=== PATIENT | female | born 1950 | race Caucasian/White ===

== ENCOUNTER 2016-10-26 20:22 | Emergency (ER) | payer BC ==
[2016-10-26 21:00] VITALS: BP 137/77
--- NOTE | 2016-10-26 22:47 | UC ---
Laceration HPI - HPI Summary HPI Summary: The patient comes in today for: 1. Laceration of the left thumb. Onset: 3 hours ago. Palliative/provocative: Pressure and moving makes it hurt. Rest makes it better. Quality: Burning. Region: Left thumb Severity: 2/10 Time: constant. Associated symptoms: Numbness: Present distal to the laceration. Last tetanus: She thinks that it has been in the last 10 years. * - History Of Current Complaint Chief Complaint: UCLaceration Stated Complaint: FINGER LAC Time Seen by Provider: 10/26/16 22:36 Hx Obtained From: Patient, Family/Parlor Maid - Allergies/Home Medications Allergies/Adverse Reactions: Allergies Allergy/AdvReac Type Severity Reaction Status Date / Time Atovaquone [From Malarone] Allergy RED-PURPLE Verified 11/10/15 16:08 REACTION TO SKIN Proguanil [From Malarone] Allergy RED-PURPLE Verified 11/10/15 16:08 REACTION TO SKIN Home Medications: Home Medications Cholecalciferol [Vitamin D] 1,000 unit PO 10/26/16 [History] PMH/Surg Hx/FS Hx/Imm Hx Previously Healthy: No - Osteopenia. Endocrine History Of: Denies: Diabetes, Thyroid Disease, Hyperthyroidism, Hypothyroidism, Dyslipidemia Cardiovascular History Of: Denies: Cardiac Disorders, Hypertension, Pacemaker/ICD, Myocardial Infarction , Congestive Heart Failure, Atrial Fibrillation, Deep Vein Thrombosis, Bleeding Disorders Respiratory History Of: Denies: COPD, Asthma, Bronchitis, Pneumonia, Pulmonary Embolism GI/ History Of: Denies: Gastroesophageal Reflux, Ulcer, Gastrointestinal Bleed, Gall Bladder Disease, Kidney Stones, Diverticulitis, Renal Disease, Urosepsis Neurological History Of: Denies: TIA, CVA, Dementia, Seizures, Migraine Psychological History Of: Denies: Anxiety, Depression, Bipolar Disorder, Schizophrenia, Post Traumatic Stress Disorder Cancer History Of: Denies: Lung Cancer, Colorectal Cancer, Breast Cancer, Prostate Cancer, Cervical Cancer Other History Of: Negative For: HIV, Hepatitis B, Hepatitis C, Anticoagulant Therapy - Surgical History Surgical History: Yes Surgery Procedure, Year, and Place: Rt FOOT - WART REMOVED - AGE 16 - Family History Known Family History: Positive: Cardiac Disease - mother- CHF, Hypertension - mother, Diabetes - sister - Social History Occupation: Employed Full-time Alcohol Use: Weekly Substance Use Type: None Smoking Status (MU): Never Smoked Tobacco Review of Systems Constitutional: Negative Skin: Negative Eyes: Negative ENT: Negative Respiratory: Negative Cardiovascular: Negative Gastrointestinal: Negative Genitourinary: Negative All Other Systems Reviewed And Are Negative: Yes Physical Exam Triage Information Reviewed: Yes Appearance: Well-Appearing, No Pain Distress, Well-Nourished Vital Signs: Initial Vital Signs Temp 97.4 F 10/26/16 20:55 Pulse 64 10/26/16 20:55 Resp 18 10/26/16 20:55 BP 137/77 10/26/16 20:55 Pulse Ox 99 10/26/16 20:55 Vital Signs Reviewed: Yes Eyes: Positive: Conjunctiva Clear. Negative: Discharge ENT: Positive: Hearing grossly normal. Negative: Pharyngeal erythema, Nasal congestion, Nasal drainage, TM bulging, TM dull, TM red, Tonsillar swelling, Tonsillar exudate Dental: Negative: Gross Decay/Caries @, Dental Fracture @ Neck: Positive: Supple, Nontender, No Lymphadenopathy. Negative: Nuchal Rigidity Respiratory: Positive: Chest non-tender, Lungs clear. Negative: No respiratory distress, No accessory muscle use, Crackles, Wheezing Cardiovascular: Positive: RRR, No Murmur Abdomen Description: Positive: Nontender, No Organomegaly, Soft. Negative: Distended, Guarding Musculoskeletal: Positive: Strength Intact, ROM Intact, No Edema Neurological: Positive: Alert, Muscle Tone Normal Psychological: Positive: Age Appropriate Behavior, Consolable Skin: Positive: Other - Left thumb: There is a cut from the lateral side near the base of the thumb nail around toward the middle part of the pad of the thumb of the distal phalanx. Cut down to the sub-cutaneous fat. She is able to flex and extend the distal phalanx. There is numbness before lidocaine used on the distal side of the wound. No bone seen. Laceration Repair - Laceration Repair 1 Description: Linear Laceration Size After Repair: Length (cm) - 2, Width (mm) - 4, Depth (mm) - 4 Modified For Repair: No Type Injection: Local Anesthesia Used: 2.0% Lido Cleansing Completed Via Routine Prep: Yes Irrigation With Pressure Irrigation Device: Yes Closure Material: Sutures Closure Method: Single Layer Suture Type: Nylon - Ten 4-0 nylon. Laceration Course/Dx - Course/Dx Course Of Treatment: Boostrix and laceration repair. - Differential Dx - Laceration/Wound Differental Diagnoses: Laceration Provider Diagnoses: Laceration of the left thumb. Discharge - Discharge Plan Condition: Stable Disposition: HOME Patient Education Materials: Care For Your Stitches (ED), Laceration (ED) Forms: *Work Release Referrals: Zachary Corral MD [Primary Care Provider] - 2 Weeks (See your primary care provider or us in 12-14 days for suture removal.) Additional Instructions: Inspect the area daily watching for increased redness, tenderness, swelling or drainage. If this occurs, please be seen then. Gently clean the area with a mild soap such as Dove (without any scents or colorings) and apply Polysporin ointment to the wound. Cover with a non-stick dressing ( Telfa) for the rest of the day. When resting, you may expose the wound to light and air, but not direct sunlight. If there is any oozing, apply pressure. Apply cold compresses to the area for the first 1-2 days. Use [id number] pain medications as needed for pain. Cold compresses can help with pain reduction also. YOu may also use Smooth's Baby Shampoo to clear the area. Use cold compresses and [id number] pain medications as needed for pain.
[2016-10-26] MEDS ORDERED: Tetan/Diph/Pertus SYR(Tdap)* 0.5 ML SYR(BOOSTRIX) use SYR IM ONE (23:20)
[2016-10-26] MEDS ORDERED: Lidocaine 2% PF * 5 ML VIAL ONE (23:31)
== END 2016-10-27 00:24 | disposition home or self-care (01) ==
LOC: UCEAST 20:22
DX: S61.012A Laceration without foreign body of left thumb without damage to nail, initial encounter (principal); W26.0XXA Contact with knife, initial encounter
CPT/HCPCS: 12001; 90471; 90715; 99211; G0463

== ENCOUNTER 2016-12-10 15:20 | Emergency (ER) | payer BC ==
[2016-12-10 15:34] VITALS: BP 148/84
[2016-12-10] MEDS ORDERED: Lidocaine 1% MPF* 2 ML VIAL ONE ×2 (15:45→15:46)
--- NOTE | 2016-12-10 16:21 | UC ---
Cyndi Paul Erika, scribed for Roque Sotomayor MD on 12/10/16 at 1549 . Laceration HPI - HPI Summary HPI Summary: Patient is a 66-year-old female presenting to [facility] with a CC of laceration to the left middle finger. 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 Patient reports that pain and bleeding were alleviated by pressure. Patient now states pain is a 3/10 after removing the bandage. Patient reports Hx HTN and denies Hx diabetes. FHx cardiac disease, HTN, diabetes. - History Of Current Complaint Chief Complaint: UCLaceration Stated Complaint: FINGER LAC Time Seen by Provider: 12/10/16 15:31 Hx Obtained From: Patient Laceration Location: Finger Mechanism Of Injury: Sharp Trauma - knife Onset/Duration: Sudden Onset, Lasting Hours, Still Present Severity: Moderate Pain Intensity: 3 Pain Scale Used: 0-10 Numeric - Allergies/Home Medications Allergies/Adverse Reactions: Allergies Allergy/AdvReac Type Severity Reaction Status Date / Time Atovaquone [From Malarone] Allergy RED-PURPLE Verified 11/10/15 16:08 REACTION TO SKIN Proguanil [From Malarone] Allergy RED-PURPLE Verified 11/10/15 16:08 REACTION TO SKIN PMH/Surg Hx/FS Hx/Imm Hx Endocrine History Of: Denies: Diabetes Cardiovascular History Of: Reports: Hypertension Cancer History Of: Denies: Lung Cancer, Colorectal Cancer, Breast Cancer, Prostate Cancer, Cervical Cancer Other History Of: Negative For: HIV, Hepatitis B, Hepatitis C, Anticoagulant Therapy - Surgical History Surgical History: Yes Surgery Procedure, Year, and Place: Rt FOOT - WART REMOVED - AGE 16 - Family History Known Family History: Positive: Cardiac Disease - mother- CHF, Hypertension - mother, Diabetes - sister - Social History Occupation: Retired Alcohol Use: Weekly Alcohol Amount: 3 -4 glasses per week once in awhile Substance Use Type: None Smoking Status (MU): Never Smoked Tobacco - Immunization History Most Recent Influenza Vaccination: 2016/2017 Most Recent Tetanus Shot: 2017 Review of Systems Constitutional: Negative Skin: Other - laceration left middle finger Eyes: Negative ENT: Negative Respiratory: Negative Cardiovascular: Negative Gastrointestinal: Negative Genitourinary: Negative Motor: Negative Neurovascular: Negative Musculoskeletal: Negative Neurological: Negative Psychological: Negative All Other Systems Reviewed And Are Negative: Yes Physical Exam Triage Information Reviewed: Yes Vital Signs: Initial Vital Signs Temp 98.7 F 12/10/16 15:27 Pulse 60 12/10/16 15:27 Resp 18 12/10/16 15:27 BP 148/84 12/10/16 15:27 Pulse Ox 97 12/10/16 15:27 Vital Signs Reviewed: Yes - Additional Comments Vital signs: Reviewed Gen.: Patient is a well-developed and nourished female in no acute distress. Patient is lying comfortably on the stretcher. Head: Normacephalic and atraumatic Eyes: PERRLA, EOMI x2. Ears: Right and Left ear canal and TM WNL Nose and mouth: WNL Neck: Supple, no lymphadenopathy, no JVD Lungs: CTA B/L CVS: S1 & S2 present. No murmurs appreciated. ABDOMEN: Soft, non-tender. No signs of distention. No rebound no guarding, and no masses palpated. Bowel sounds are normal. EXTREMITIES: FROM in all major joints, no edema, no cyanosis or clubbing. Left middle finger with a laceration in a L shape with irregular borders . Nail also with small abrasion. NEURO: Alert and oriented x 3. No acute neurological deficits. Speech is normal and follows commands. SKIN: Dry and warm Laceration Repair - Laceration Repair 1 Laceration Size After Repair: Length (cm) - 0.5 cm L-shaped at the left middle finger Type Injection: Local Anesthesia Used: 1.0% Lido Cleansing Completed Via Routine Prep: Yes Closure Material: Sutures - 3 sutures Closure Method: Single Layer Suture Type: Other - 5.0 Ethilon Laceration Course/Dx - Course/Dx Course Of Treatment: Patient is a 66-year-old female presenting to [facility] with a CC of laceration to the left middle finger. 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 Patient reports that pain and bleeding were alleviated by pressure. Patient now states pain is a 3/10 after removing the bandage. Patient reports Hx HTN and denies Hx diabetes. FHx cardiac disease, HTN, diabetes. Laceration was repaired. No complications. Patient has the Tetanous vacine 1 month ago. D/C home given instructions to look for signs of infections. She understands or agrees. Suture removal in 7-10 days. - Differential Dx - Laceration/Wound Differental Diagnoses: Laceration, Puncture Wound Provider Diagnoses: 1. Left middle finger laceration Discharge - Discharge Plan Condition: Stable Disposition: HOME Patient Education Materials: Finger Laceration (ED), Care For Your Stitches (ED ) Referrals: Zachary Corral MD [Primary Care Provider] - Additional Instructions: Suture removal in 7-10 days. The documentation as recorded by the Cyndi brasher Erika accurately reflects the service I personally performed and the decisions made by Bran galdamez Walter, MD.
== END 2016-12-10 16:38 | disposition home or self-care (01) ==
LOC: UCEAST 15:20
DX: S61.213A Laceration without foreign body of left middle finger without damage to nail, initial encounter (principal); W26.0XXA Contact with knife, initial encounter; Y93.G1 Activity, food preparation and clean up; Y92.9 Unspecified place or not applicable; I10 Essential (primary) hypertension
CPT/HCPCS: 12001; 12002; 99211; G0463

== ENCOUNTER 2016-12-28 08:53 | Emergency (ER) | payer BC ==
[2016-12-28 09:07] VITALS: BP 125/77
--- NOTE | 2016-12-28 09:19 | UC ---
Skin Complaint HPI - History of Current Complaint Hx Obtained From: Patient Hx Last Menstrual Period: post menopausal Onset/Duration: Sudden Onset - found tick on L upper thigh this am. pulled off half of tick. she is not certain how long the tick was on her but lives in the [facility] Onset Severity: Mild Current Severity: None Location: Discrete - upper L ant thigh Character: Redness Aggravating: Nothing Alleviating: Nothing Associated Signs & Symptoms: Positive: Negative Related History: Insect Bite/Sting <Temo Hernandez - Last Filed: 12/28/16 09:13> <Carla Rebollar - Last Filed: 12/28/16 10:20> - History of Current Complaint Chief Complaint: UCSkin Time Seen by Provider: 12/28/16 09:10 Stated Complaint: TICK BITE - Allergy/Home Medications Allergies/Adverse Reactions: Allergies Allergy/AdvReac Type Severity Reaction Status Date / Time Atovaquone [From Malarone] Allergy RED-PURPLE Verified 12/28/16 09:07 REACTION TO SKIN Proguanil [From Malarone] Allergy RED-PURPLE Verified 12/28/16 09:07 REACTION TO SKIN Review of Systems Constitutional: Negative Respiratory: Negative Cardiovascular: Negative Musculoskeletal: Negative Neurological: Negative Psychological: Negative All Other Systems Reviewed And Are Negative: Yes <Temo Hernandez - Last Filed: 12/28/16 09:13> PMH/Surg Hx/FS Hx/Imm Hx Previously Healthy: Yes Endocrine History Of: Denies: Diabetes, Thyroid Disease, Hyperthyroidism, Hypothyroidism, Dyslipidemia Cardiovascular History Of: Reports: Hypertension - no meds Denies: Cardiac Disorders, Pacemaker/ICD, Myocardial Infarction, Congestive Heart Failure, Atrial Fibrillation, Deep Vein Thrombosis, Bleeding Disorders Respiratory History Of: Denies: COPD, Asthma, Bronchitis, Pneumonia, Pulmonary Embolism GI/ History Of: Denies: Gastroesophageal Reflux, Ulcer, Gastrointestinal Bleed, Gall Bladder Disease, Kidney Stones, Diverticulitis, Renal Disease, Urosepsis Neurological History Of: Denies: TIA, CVA, Dementia, Seizures, Migraine Psychological History Of: Denies: Anxiety, Depression, Bipolar Disorder, Schizophrenia, Post Traumatic Stress Disorder Cancer History Of: Denies: Lung Cancer, Colorectal Cancer, Breast Cancer, Prostate Cancer, Cervical Cancer Other History Of: Negative For: HIV, Hepatitis B, Hepatitis C, Anticoagulant Therapy - Surgical History Surgical History: Yes Surgery Procedure, Year, and Place: Rt FOOT - WART REMOVED - AGE 16 - Family History Known Family History: Positive: Cardiac Disease - mother- CHF, Hypertension - mother, Diabetes - sister - Social History Occupation: Retired Lives: With Family Alcohol Use: Weekly Alcohol Amount: 3 -4 glasses per week once in awhile Substance Use Type: None Smoking Status (MU): Never Smoked Tobacco - Immunization History Most Recent Influenza Vaccination: 2015/2016 Most Recent Tetanus Shot: 2017 <Temo Hernandez - Last Filed: 12/28/16 09:13> Physical Exam Triage Information Reviewed: Yes Appearance: Well-Appearing, No Pain Distress, Well-Nourished Vital Signs: Initial Vital Signs Temp 97.4 F 12/28/16 09:02 Pulse 60 12/28/16 09:02 Resp 18 12/28/16 09:02 BP 125/77 12/28/16 09:02 Pulse Ox 100 12/28/16 09:02 Vital Signs Reviewed: Yes Respiratory Exam: Normal Cardiovascular Exam: Normal Musculoskeletal Exam: Normal Musculoskeletal: Positive: Strength Intact Neurological Exam: Normal Psychological Exam: Normal Skin: Positive: Other - small black dot surrounded by erythema (8mm) upper L ant thigh. tiny black spec removed with forceps <Temo Hernandez - Last Filed: 12/28/16 09:13> Vital Signs: Initial Vital Signs Temp 97.4 F 12/28/16 09:02 Pulse 60 12/28/16 09:02 Resp 18 12/28/16 09:02 BP 125/77 12/28/16 09:02 Pulse Ox 100 12/28/16 09:02 <Carla Rebollar - Last Filed: 12/28/16 10:20> Course/Dx - Differential Diagnoses - Skin Complaint Differential Diagnoses: Cellulitis, Foreign Body, Tick Born Illness - Diagnoses Provider Diagnoses: tick bite <Temo Hernandez - Last Filed: 12/28/16 09:13> Discharge <Temo Hernandez - Last Filed: 12/28/16 09:13> <Carla Rebollar - Last Filed: 12/28/16 10:20> - Discharge Plan Condition: Good Disposition: HOME Prescriptions: Doxycycline (Monohydrate) [Doxycycline Monohydrate] 100 mg PO ONCE #2 cap Patient Education Materials: Lyme Disease (ED), Tick Bite (ED) Referrals: Zachary Corral MD [Primary Care Provider] - If Needed (for enlarging rash or other problems) Additional Instructions: keep area clean and dry. watch for signs of Lyme disease Take doxycycline as prescribed today Attestations User Type: Provider - I was available for consult. This patient was seen by the CHUCK. The patient was not presented to, seen by, or examined by me. <Carla Rebollar - Last Filed: 12/28/16 10:20>
== END 2016-12-28 09:55 | disposition home or self-care (01) ==
LOC: UCEAST 08:53
DX: S70.362A Insect bite (nonvenomous), left thigh, initial encounter (principal); W57.XXXA Bitten or stung by nonvenomous insect and other nonvenomous arthropods, initial encounter; N95.9 Unspecified menopausal and perimenopausal disorder
CPT/HCPCS: 99212; G0463

== ENCOUNTER 2017-07-10 14:49 | Emergency (ER) | payer MEDICARE, OTHER ==
[2017-07-10 15:39] VITALS: BP 130/71
--- NOTE | 2017-07-10 15:48 | UC ---
Lower Extremity/Ankle HPI - HPI Summary HPI Summary: 67 year old female presents with complains of right little toe pain post fall. - History of Current Complaint Chief Complaint: UCLowerExtremity Stated Complaint: TOE INJURY Time Seen by Provider: 07/10/17 15:47 Hx Obtained From: Patient Hx Last Menstrual Period: post menopause Onset/Duration: Sudden Onset Severity Initially: Moderate Severity Currently: Moderate Pain Scale Used: 0-10 Numeric - 5 - Allergies/Home Medications Allergies/Adverse Reactions: Allergies Allergy/AdvReac Type Severity Reaction Status Date / Time Atovaquone [From Malarone] Allergy RED-PURPLE Verified 12/28/16 09:07 REACTION TO SKIN Proguanil [From Malarone] Allergy RED-PURPLE Verified 12/28/16 09:07 REACTION TO SKIN PMH/Surg Hx/FS Hx/Imm Hx Previously Healthy: Yes Other History Of: Negative For: HIV, Hepatitis B, Hepatitis C, Anticoagulant Therapy - Surgical History Surgical History: Yes Surgery Procedure, Year, and Place: Rt FOOT - WART REMOVED - AGE 16 - Family History Known Family History: Positive: Cardiac Disease - mother- CHF, Hypertension - mother, Diabetes - sister - Social History Alcohol Use: Weekly Alcohol Amount: 3 -4 glasses per week once in awhile Substance Use Type: None Smoking Status (MU): Never Smoked Tobacco - Immunization History Most Recent Influenza Vaccination: 2015/2017 Most Recent Tetanus Shot: 2017 Review of Systems Constitutional: Negative Skin: Negative Eyes: Negative ENT: Negative Respiratory: Negative Cardiovascular: Negative Gastrointestinal: Negative Genitourinary: Negative Motor: Negative Neurovascular: Negative Musculoskeletal: Other: - right little toe pain Neurological: Negative Psychological: Negative All Other Systems Reviewed And Are Negative: Yes Physical Exam Triage Information Reviewed: Yes Vital Signs: Initial Vital Signs Temp 37.2 C 07/10/17 15:31 Pulse 70 07/10/17 15:31 Resp 16 07/10/17 15:31 BP 130/71 07/10/17 15:31 Pulse Ox 100 07/10/17 15:31 Eye Exam: Normal ENT Exam: Normal Dental Exam: Normal Neck exam: Normal Neck: Positive: 1 Respiratory Exam: Normal Cardiovascular Exam: Normal Abdominal Exam: Normal Musculoskeletal: Positive: Other: - right little toe pain Neurological Exam: Normal Psychological Exam: Normal Skin Exam: Normal Lower Extremity Course/Dx - Differential Dx/Diagnosis Provider Diagnoses: right little toe non displaced fx Discharge - Discharge Plan Condition: Stable Disposition: HOME Prescriptions: Acetaminop/Codeine 30 MG TAB* [Tylenol/Codeine 30 MG TAB*] 1 tab PO Q8H PRN #9 tab MDD 3 PRN Reason: Pain Patient Education Materials: Toe Fracture (ED) Referrals: Parker De Anda MD [Medical Doctor] - Zachary Corral MD [Primary Care Provider] -
--- NOTE | 2017-07-10 16:13 | RAD ---
INDICATION: Fall. Right foot injury COMPARISON: None TECHNIQUE: AP, lateral, and oblique views were obtained. FINDINGS: There is a essentially nondisplaced transverse fractures of the distal aspect of the proximal fossa the fifth toe. There are no other fractures. There is mild associated soft tissue swelling. IMPRESSION: FRACTURE FIFTH TOE DESCRIBED.
== END 2017-07-10 17:01 | disposition home or self-care (01) ==
LOC: UCEAST 14:49
DX: S92.504A Nondisplaced unspecified fracture of right lesser toe(s), initial encounter for closed fracture (principal); W19.XXXA Unspecified fall, initial encounter; Y93.9 Activity, unspecified; Y92.9 Unspecified place or not applicable; Y99.9 Unspecified external cause status
CPT/HCPCS: 99213; G0463

== ENCOUNTER 2019-01-20 08:54 | Emergency (ER) | payer MEDICARE, OTHER ==
[2019-01-20 09:03] VITALS: BP 166/99
--- NOTE | 2019-01-20 10:16 | UC ---
Skin Complaint HPI - HPI Summary HPI Summary: PATIENT DISCOVERED A TICK ATTACHED TO THE LEFT SIDE OF HER ABDOMEN THIS MORNING. ATTEMPTED TO REMOVE IT WITH TWEEZERS BUT WAS UNSUCCESSFUL. THINKS THE TICK ATTACHED YESTERDAY MORNING WHILE [place]. - History of Current Complaint Chief Complaint: UCSkin Time Seen by Provider: 01/20/19 10:00 Stated Complaint: TICK BITE BELLY Hx Obtained From: Patient Hx Last Menstrual Period: post menopause Onset/Duration: Still Present Timing: Constant Onset Severity: Mild Current Severity: Mild Pain Intensity: 2 Pain Scale Used: 0-10 Numeric Character: Redness Aggravating Factor(s): Nothing Alleviating Factor(s): Nothing - Allergy/Home Medications Allergies/Adverse Reactions: Allergies Allergy/AdvReac Type Severity Reaction Status Date / Time atovaquone [From Malarone] Allergy red purple Verified 01/20/19 08:59 reaction proguanil [From Malarone] Allergy red purple Verified 01/20/19 08:59 reaction PMH/Surg Hx/FS Hx/Imm Hx Cardiovascular History: Hypertension Other History Of: Negative For: HIV, Hepatitis B, Hepatitis C, Anticoagulant Therapy - Surgical History Surgical History: Yes Surgery Procedure, Year, and Place: Rt FOOT - WART REMOVED - AGE 16 - Family History Known Family History: Positive: Cardiac Disease - mother- CHF, Hypertension - mother, Diabetes - sister - Social History Alcohol Use: Weekly Alcohol Amount: 3 -4 glasses per week once in awhile Substance Use Type: None Smoking Status (MU): Never Smoked Tobacco - Immunization History Most Recent Influenza Vaccination: 2016/2016 Most Recent Tetanus Shot: 2017 Review of Systems All Other Systems Reviewed And Are Negative: Yes Skin: Positive: Other - TICK ATTACHED TO ABDOMEN Respiratory: Positive: Negative Cardiovascular: Positive: Negative Gastrointestinal: Positive: Negative Physical Exam Triage Information Reviewed: Yes Appearance: Well-Appearing, No Pain Distress, Well-Nourished Vital Signs: Initial Vital Signs Temp 97.1 F 01/20/19 09:01 Pulse 68 01/20/19 09:01 Resp 16 01/20/19 09:01 BP 166/99 01/20/19 09:01 Pulse Ox 100 01/20/19 09:01 Vital Signs Reviewed: Yes Eyes: Positive: Conjunctiva Clear ENT: Positive: Hearing grossly normal Neck: Positive: Supple Respiratory: Positive: No respiratory distress, No accessory muscle use Cardiovascular: Positive: Pulses Normal Abdomen Description: Positive: Soft Musculoskeletal: Positive: No Edema Neurological: Positive: Alert Psychological: Positive: Age Appropriate Behavior Skin: Positive: Other - UNENGORGED TICK ATTACHED TO RIGHT ABDOMEN Course/Dx - Course Course Of Treatment: TICK REMOVED WITHOUT DIFFICULTY BY MD USING SPLINTER FORCEPS. COUNSELED PT EXTENSIVELY ON LOW RISK OF SARA LYME DISEASE FROM THIS TICK. TICK WAS NOT ENGORGED SO UNLIKELY TO HAVE BEEN ATTACHED FOR REQUISITE AMOUNT OF TIME TO TRANSMIT DISEASE HOWEVER PT IS VERY CONCERNED AND INSISTS ON PROPHYLACTIC DOXY. USE TICK TWISTER TO HELP REMOVE ANY FUTURE TICKS. KEEP THE AREA CLEAN AND BE VIGILANT OF SX OVER THE NEXT 4-6 WEEKS. - Diagnoses Provider Diagnosis: Tick bite of abdomen Discharge - Sign-Out/Discharge Documenting (check all that apply): Patient Departure All imaging exams completed and their final reports reviewed: No Studies - Discharge Plan Condition: Stable Disposition: HOME Prescriptions: Doxycycline Monohydrate 2 cap PO ONCE #2 cap Patient Education Materials: Tick Bite (ED) Referrals: Zachary Corral MD [Primary Care Provider] - If Needed Additional Instructions: You received a prescription for 200mg of doxycycline for prophylaxis against Lyme disease. The Infectious Disease Society of [place] (IDSA) does not generally recommend antimicrobial prophylaxis for prevention of Lyme disease after a recognized tick bite. However, in areas that are highly endemic for Lyme disease, a single dose of doxycycline may be offered to adult patients (200 mg) who are not and to children older than 8 years of age (4 mg/kg up to a maximum dose of 200 mg) when all of the following circumstances exist: CRITERIA FOR RECEIVING PROPHYLACTIC TREATMENT FOR LYME DISEASE 1) TICK ATTACHED FOR AT LEAST 36 HRS 2) TICK IS AN ADULT OR [place] DEER TICK 3) YOU LIVE IN AN AREA WHERE LYME DISEASE IS PREVALENT (i.e., [place], [place], [place], , [place] , [place], [place], [place], [place], [place], [place], [place], [place], [place]) 4) YOU HAVE NO CONTRAINDICATION TO THE MEDICATION (DOXYCYCLINE) 5) PROPHYLAXIS IS BEGUN WITHIN 72 HRS OF TICK REMOVAL YOUR CHANCES OF DEVELOPING LYME DISEASE FROM THIS TICK ARE EXTREMELY SMALL. HOWEVER, 1 TICK MEANS THERE MAY HAVE BEEN OTHER TICKS OF WHICH YOU WEREN'T AWARE. SO BE VIGILANT OF YOUR SYMPTOMS AND DON'T HESITATE TO GET SEEN AGAIN IF YOU DEVELOP UNEXPLAINED FEVER, HEADACHE, JOINT PAIN, BODY ACHES, RASH OR ANY OTHER CONCERNING SYMPTOMS. Antibiotic treatment following a tick bite is not recommended as a means to prevent anaplasmosis, babesiosis, ehrlichiosis, or Mill[place] spotted fever. There is no evidence this practice is effective, and it may simply delay onset of disease. Instead, persons who experience a tick bite should be alert for symptoms suggestive of tickborne illness and consult a physician if fever, rash, headache or other symptoms of concern develop. - Billing Disposition and Condition Condition: STABLE Disposition: Home
== END 2019-01-20 10:16 | disposition home or self-care (01) ==
LOC: UCEAST 08:54
DX: S30.861A Insect bite (nonvenomous) of abdominal wall, initial encounter (principal); W57.XXXA Bitten or stung by nonvenomous insect and other nonvenomous arthropods, initial encounter; Y93.H2 Activity, gardening and landscaping; Y92.096 Garden or yard of other non-institutional residence as the place of occurrence of the external cause; I10 Essential (primary) hypertension; Z88.8 Allergy status to other drugs, medicaments and biological substances
CPT/HCPCS: 99212; G0463

== ENCOUNTER 2019-11-16 21:45 | Emergency (ER) | payer MEDICARE, OTHER ==
--- OUTSIDE RECORDS SUMMARY | 2019-11-16 21:51 | XMS REPORT | Continuity of Care Document ---
:1950 External Reference #:[id number] Author Name Zachary Corral M.D. Address [address] [place] [address] Care Team Providers Name Role Phone [facility] [facility] - Gastroenterology Care Team Information Produce Service Team Member [phone] Florence Escoto MD - Dermatology Care Team Information Produce Service Team Member Celina Barrera MD - Surgery Care Team Information Produce Service Team Member [phone] [facility] Physical Care Team Information Produce Service Team Member Therapy - Physical Therapy Kapil Beaver MD - Endocrinology, Care Team Information Produce Service Team Member Diabetes & Metabolism Problems Active Problems Provider Date Osteoporosis Zachary Corral M.D. Onset: 02/21/2014 Low back pain Zachary Corral M.D. Onset: 02/21/2014 Essential hypertension Zachary Corral M.D. Onset: 07/30/2016 Actinic keratosis Zachary Corral M.D. Onset: 08/25/2018 Bleeding from nose Zachary Corral M.D. Onset: 10/11/2019 Gastro-esophageal reflux disease with Zachary Corral M.D. Onset: 2019 esophagitis Neck pain Zachary Corral M.D. Onset: 05/31/2019 Social History Type Date Description Comments Sex Unknown Tobacco Use Start: Unknown Never Smoked Cigarettes ETOH Use Occasionally consumes alcohol Tobacco Use Start: Unknown Patient has never smoked Allergies, Adverse Reactions, Alerts Active Allergies Reaction Severity Comments Date Malarone Severe Rash 06/12/2009 Medications Active Medications SIG Qnty Indications Ordering Provider Date Famotidine take one tablet 60tabs Zachary Corral, 10/11/2019 20mg Tablets by mouth twice a M.D. day prn Risedronate Sodium take 1 tablet by 4tabs M81.0 Zachary Corral, 2017 mouth every month M.D. 150mg Tablets Vitamin D3 1 po qd Zachary Corral, 07/30/2016 2000Unit M.D. Capsules Vitamin K2 75MG 2 po qd prn Unknown Calcium 630MG 1 tab in am and Unknown sometime 315 at night Medications Administered in Office Medication SIG Qnty Indications Ordering Provider Date TB Intradermal Test Zachary Corral M.D. 12/31/2010 Injection Immunizations CPT Code Status Date Vaccine Lot # [id number] Given 08/25/2018 Pneumococcal Conjugate Vacc-13 [id number] Given 01/06/2013 Zostivax [id number] Vital Signs Date Vital Result Comment 10/11/2019 10:47am BP Systolic 160 mmHg BP Diastolic 90 mmHg Heart Rate 68 /min Body Temperature 97.5 F Height 63 inches 5'3" Weight 157.00 lb BMI (Body Mass Index) 27.8 kg/m2 05/31/2019 11:39am BP Systolic 166 mmHg BP Diastolic 98 mmHg Heart Rate 66 /min Body Temperature 97.9 F Height 63 inches 5'3" measured 08/25/18 Weight 155.00 lb BMI (Body Mass Index) 27.5 kg/m2 Results Description No Information Available Procedures Date Code Description Status 01/13/2019 [id number] Bone Mineral Density Test Completed 10/20/2018 [id number] Colonoscopy Completed 10/01/2018 [id number] Mammogram Completed 09/18/2017 [id number] Mammogram Completed 08/10/2016 [id number] Mammogram Completed 08/01/2015 [id number] Mammogram Completed 03/15/2014 [id number] Mammogram Completed 01/06/2013 [id number] Mammogram Completed 09/03/2012 [id number] Colonoscopy Completed 09/02/2011 [id number] Mammogram Completed 08/23/2009 [id number] Mammogram Completed 09/22/2007 [id number] Mammogram Completed 07/11/2006 [id number] Mammogram Completed Medical Devices Description No Information Available Encounters Type Date Location Provider Dx Diagnosis Office Visit 05/31/2019 [facility] Zachary Corral, I10 Essential ( primary) 11:00a M.D. hypertension M81.0 Age-related osteoporosis w/o current pathological fracture M54.5 Low back pain M54.2 Cervicalgia Assessments Date Code Description Provider 10/11/2019 M81.0 Age-related osteoporosis without current Zachary Corral M.D. pathological fracture 10/11/2019 I10 Essential (primary) hypertension Zachary Corral M.D. 10/11/2019 K21.0 Gastro-esophageal reflux disease with Zachary Corral M.D. esophagitis 10/11/2019 R04.0 Epistaxis Zachary Corral M.D. 05/31/2019 I10 Essential (primary) hypertension Zachary Corral M.D. 05/31/2019 M81.0 Age-related osteoporosis without current Zachary Corral M.D. pathological fracture 05/31/2019 M54.5 Low back pain Zachary Corral M.D. 05/31/2019 M54.2 Cervicalgia Zachary Corral M.D. Plan of Treatment Future Appointment(s):10/18/2019 8:30 am - Zachary Corral M.D. at [facility] Caiyeu1803/20/2020 11:20 am - Zachary Corral M.D. at [facility] [id number] - Zachary Corral M.D.M81.0 Age-related osteoporosis without current pathological [id number] Essential (primary) hypertensionNew Labs:Comp Metabolic -ALL [facility], Ordered: 10/11/19Lipid Panel-[facility], Ordered: 10/11CBC Electronic-[facility], Ordered: 10/11/19Ua - Non Micro ([facility]), Ordered: 10/11/19TSH ([facility]), Ordered: 10/11/19Comments:The patient will continue to monitor blood pressure in the near future, and let me know the blood pressure results if there are readings above 135/85.K21.0 Gastro- esophageal reflux disease with esophagitisComments:start on Pepcid, may use as oljohdX16.0 EpistaxisComments:papule looks very benign, will refer to ENT for increase or recurrent symptomsAllNew Medication:Famotidine 20 mg - take one tablet by mouth twice a day prnComments:Patient's blood pressure is elevated at exam today but she continues to decline medication. She was given information to review. She had a consultation with Dr. Meadows who also advised treatment of herhypertension in 2017 she declined. She'll consider a repeat consultation with cardiology. Patient had a episode of epistaxis from the left nares after manipulating a papule in her nose. Currently not bleeding , and the papule looks benign. She will contact us if she has problems. She prefers to havemammography every 2 years. She was given a prescription for famotidine to help decrease gastroesophageal reflux symptoms while on risedronate. She'll return for fasting blood work and return in 6 months Functional Status Description No Information Available Mental Status Description No Information Available Referrals Description No Information Available
[2019-11-16 22:01] VITALS: BP 160/97
--- NOTE | 2019-11-16 22:28 | UC ---
Epistaxis Nasal HPI - HPI Summary HPI Summary: 69-year-old woman comes in with chief complaint of a left-sided nosebleed. Started about an hour ago. She had blown her nose and then picked at a scab that was on the nasal septum and she started to bleed. She did put some pressure on the area which initially slowed it down but then it started bleeding heavily again. On the way here she did have blood going down the back of her throat and did end up coughing up a couple of blood clots. Patient is not on any blood thinners. A 2 months ago she had a nosebleed on the same side that she was able stop. Does not have hypertension. - History of Current Complaint Chief Complaint: UCGeneralIllness Stated Complaint: NOSE BLEED Time Seen by Provider: 11/16/19 21:47 Hx Last Menstrual Period: post menopause Pain Intensity: 0 - Allergies/Home Medications Allergies/Adverse Reactions: Allergies Allergy/AdvReac Type Severity Reaction Status Date / Time atovaquone [From Malarone] Allergy red purple Verified 11/16/19 22:02 reaction proguanil [From Malarone] Allergy red purple Verified 11/16/19 22:02 reaction Home Medications: Home Medications Calcium Citrate/Vitamin D2 [Collin-Citrate Plus Vitamin D Tab] 750 mg PO DAILY [History Confirmed 11/16/19] Risedronate (NF) [Actonel (NF)] 1 tab PO MONTHLY 07/30/16 [History Confirmed 12/02] Cholecalciferol (Vitamin D3) [Vitamin D3] 1,000 unit PO DAILY 10/26/16 [History Confirmed 11/16/19] PMH/Surg Hx/FS Hx/Imm Hx Previously Healthy: Yes Other History Of: Negative For: HIV, Hepatitis B, Hepatitis C, Anticoagulant Therapy - Surgical History Surgical History: Yes Surgery Procedure, Year, and Place: Rt FOOT - WART REMOVED - AGE 16 - Family History Known Family History: Positive: Cardiac Disease - mother- CHF, Hypertension - mother, Diabetes - sister - Social History Alcohol Use: Weekly Alcohol Amount: 1 glass a night Substance Use Type: None Smoking Status (MU): Never Smoked Tobacco - Immunization History Most Recent Influenza Vaccination: 2015/2016 Most Recent Tetanus Shot: 2017 Review of Systems All Other Systems Reviewed And Are Negative: Yes Constitutional: Positive: Negative Skin: Positive: Negative Eyes: Positive: Negative ENT: Positive: Epistaxis Respiratory: Positive: Negative Cardiovascular: Positive: Negative Gastrointestinal: Positive: Negative Motor: Positive: Negative Neurovascular: Positive: Negative Musculoskeletal: Positive: Negative Neurological/Mental Status: Positive: Negative Psychological: Positive: Negative Is Patient Immunocompromised?: No Physical Exam Triage Information Reviewed: Yes Appearance: Well-Appearing, No Pain Distress, Well-Nourished Vital Signs: Initial Vital Signs Temp 97.7 F 11/16/19 21:49 Pulse 84 11/16/19 21:49 Resp 16 11/16/19 21:49 BP 160/97 11/16/19 21:49 Pulse Ox 100 11/16/19 21:49 Vital Signs Reviewed: Yes Eye Exam: Normal Eyes: Positive: Conjunctiva Clear ENT: Positive: Other - There is active bleeding from the left nostril. After direct pressure the area of the bleeding is on the left side on the nasal septum approximately 1 cm into the nose. Neck: Positive: Supple Respiratory: Positive: Lungs clear, Normal breath sounds, No respiratory distress Cardiovascular: Positive: RRR Musculoskeletal: Positive: Strength Intact, ROM Intact Neurological: Positive: Alert, Muscle Tone Normal Psychological: Positive: Normal Response To Family, Age Appropriate Behavior Skin Exam: Normal Epistaxis Nasal Course/Dx - Course Course Of Treatment: In clinic a clamp was made with tongue depressors and placed on the patient's nose. After 10 minutes we checked again there was still a small amount of bleeding and the clamp was replaced. After 10 more minutes the clamp was removed. I did not see any active bleeding although the patient could feel some blood going down the back of her throat. We discussed placing Merocel packing in the left nostril versus continue with pressure. Patient prefers to continue with pressure. Patient discharged home with the clamp in place with orders to keep the nasal mucosa moist and she can also use some Vaseline to keep the area moist. Patient will follow-up with ENT. If the nosebleeds gets worse she will go to the emergency department. - Differential Dx/Diagnosis Provider Diagnosis: Epistaxis Discharge ED - Sign-Out/Discharge Documenting (check all that apply): Patient Departure All imaging exams completed and their final reports reviewed: No Studies - Discharge Plan Condition: Stable Disposition: HOME Patient Education Materials: Nosebleed (ED) Referrals: Zachary Corral MD [Primary Care Provider] - Victor Manuel Gallegos MD [Medical Doctor] - Antoni Russ MD [Medical Doctor] - Additional Instructions: FOLLOW UP WITH ENT. You can help protect the nasal mucosa with a small amount of Vaseline. He can also keep the nasal mucosa moist with saline nasal spray. Avoid picking or blowing your nose. If you get any more nosebleeds apply direct pressure by pinching your nose. GO TO THE EMERGENCY DEPARTMENT IF WORSE OR ANY QUESTIONS OR CONCERNS. - Billing Disposition and Condition Condition: STABLE Disposition: Home
== END 2019-11-16 22:40 | disposition home or self-care (01) ==
LOC: UCEAST 21:45
DX: R04.0 Epistaxis (principal); Z88.1 Allergy status to other antibiotic agents; Z88.8 Allergy status to other drugs, medicaments and biological substances
CPT/HCPCS: 99212; G0463